=== PATIENT | male | born 1970 | race Caucasian/White ===

== ENCOUNTER 2019-06-17 12:52 | Emergency (ER) | payer OTHER ==
[~2019-06-17] VITALS: Ht 182.9 cm; Wt 113.6 kg
[2019-06-17 13:21] VITALS: BP 121/78; PULSE 64; RESP 18; Ht 182.9 cm; Wt 113.6 kg
== END 2019-06-17 13:32 | disposition home or self-care (01) ==
LOC: E/R 12:52
DX: S61.432A Puncture wound without foreign body of left hand, initial encounter (principal); W46.0XXA Contact with hypodermic needle, initial encounter; Y92.9 Unspecified place or not applicable
CPT/HCPCS: 80076; 85025; 86703; 86706; 86803; 87340; 99283